=== PATIENT | male | born 1935 | race Caucasian/White ===

== ENCOUNTER 2018-12-14 09:11 | Inpatient (IN) | payer MEDICARE, MEDICAID ==
[~2018-12-14] VITALS: Ht 185.4 cm; Wt 109.3 kg
[2018-12-14] MEDS ORDERED: SODIUM CHLORIDE 0.9% 500 ML IV ONE (10:16)
[2018-12-14 10:59] LABS: BASOPHILS % 0.6 % (0.0-2.0); EOSINOPHILS % 1.6 % (0.0-5.0); HEMATOCRIT. 43.4 % (42.0-52.0); HEMOGLOBIN. 14.3 g/dL (14.0-18.0); LYMPHOCYTES % 10.6 % (20.0-50.0); MEAN CORPUSCULAR HEMOGLOBIN 29.7 pg (28.0-32.0); MEAN CORPUSCULAR VOLUME 90.5 fL (80.0-94.0); MEAN PLATELET VOLUME 8.6 fl (7.4-10.4); MONOCYTES % 8.1 % (2.0-8.0); NEUTROPHILS % 79.1 % (40.0-76.0); PLATELET 170 x1000/uL (130-400); RED CELL DISTRIBUTION WIDTH 14.1 % (11.6-14.6)
[2018-12-14 11:02] LABS: CHLORIDE 105 mEq/L (98-107)
[2018-12-14 11:06] LABS: INR 1.1; PARTIAL THROMBOPLASTIN TIME 26.6 sec (23.4-31.0); PROTHROMBIN TIME 10.8 sec (9.1-11.1)
[2018-12-14] MEDS ORDERED: DOCUSATE SODIUM 100MG CAPSULE PO PRN (12:30)
[2018-12-14] MEDS ORDERED: HYDROCODONE/ACETAMINOPHEN 5/325MG TABLET PO PRN (12:30)
[2018-12-14] MEDS ORDERED: MAGNESIUM/ALUMINUM HYDROXIDE/SIMETHICONE 30ML UDC PO PRN (12:30)
[2018-12-14] MEDS ORDERED: ONDANSETRON HCL 4MG/2ML INJ IV PRN (12:30)
[2018-12-14] MEDS ORDERED: LORAZEPAM 2MG/ML CPJ IV PRN (12:30)
[2018-12-14] MEDS ORDERED: CLONIDINE 0.1MG TABLET PO PRN (12:30)
[2018-12-14] MEDS ORDERED: LEVETIRACETAM 500MG PREMIX 100 ML IV NR (12:30)
[2018-12-14] MEDS ORDERED: GUAIFENESIN 200MG/10ML SUGAR FREE UDC PO PRN (12:30)
[2018-12-14] MEDS ORDERED: ACETAMINOPHEN 325MG TABLET PO PRN (12:30)
[2018-12-14 13:28] LABS: CLARITY URINE CLEAR (CLEAR); COLOR URINE YELLOW (YELLOW); KETONES URINE NEGATIVE (NEGATIVE); LEUKOCYTE ESTERASE URINE NEGATIVE (NEGATIVE); NITRITE URINE NEGATIVE (NEGATIVE); OCCULT BLOOD URINE NEGATIVE (NEGATIVE); PROTEIN URINE NEGATIVE (NEGATIVE); SPECIFIC GRAVITY URINE 1.007 (1.005-1.030); UROBILINOGEN URINE 0.2 E.U./dL (0.2-1.0)
[2018-12-14 14:02] LABS: CREATINE KINASE 84 IU/L (39-308)
[2018-12-14] MEDS ORDERED: NA PHOS,M-B/NA PHOS,DI-BA ENEMA 118ML PR PRN (21:00)
[2018-12-14 21:30] VITALS: BP 167/96
[2018-12-14] MEDS: SODIUM CHLORIDE 0.45% 1,000 ML IV SCH (23:36)
[2018-12-15 00:23] VITALS: BP 155/74
[2018-12-15] MEDS ORDERED: AMLO5TAB88 MT (01:52)
[2018-12-15] MEDS ORDERED: FINA1TAB18 MT (01:52)
[2018-12-15] MEDS ORDERED: ASCO500C15 MT (01:52)
[2018-12-15] MEDS ORDERED: FINA5TAB11 PO (01:52)
[2018-12-15] MEDS ORDERED: CARB15DR2 EACHEYE (01:52)
[2018-12-15] MEDS ORDERED: LUBI8CAP MT (01:52)
[2018-12-15] MEDS ORDERED: MULT-34 MT (01:52)
[2018-12-15] MEDS ORDERED: LORA10CA MT (01:52)
[2018-12-15] MEDS ORDERED: FEBU40TA MT (01:52)
[2018-12-15] MEDS ORDERED: ATROV INH (01:52)
[2018-12-15] MEDS ORDERED: OMEP40CA34 MT (01:52)
[2018-12-15] MEDS ORDERED: ACET-2708 MT (01:52)
[2018-12-15] MEDS ORDERED: CITA40TA11 MT (01:52)
[2018-12-15] MEDS ORDERED: DONE23TA3 MT (01:52)
[2018-12-15] MEDS ORDERED: vitamin d 3 (01:52)
[2018-12-15] MEDS ORDERED: TAMS0.4C31 PO (01:52)
[2018-12-15] MEDS ORDERED: LACT1CAP63 MT (01:52)
[2018-12-15] MEDS ORDERED: CLON-457 MT (01:52)
[2018-12-15] MEDS ORDERED: LOSA100T14 MT (01:52)
[2018-12-15] MEDS ORDERED: BUDE6.9H INH (01:52)
[2018-12-15] MEDS ORDERED: ACET-2708 PO (01:52)
[2018-12-15] MEDS ORDERED: ALBU18HF2 IH (01:52)
[2018-12-15] MEDS ORDERED: QUET25TA MT (01:52)
[2018-12-15 04:41] VITALS: BP 150/71
[2018-12-15 07:13] LABS: BASOPHILS % 0.7 % (0.0-2.0); EOSINOPHILS % 1.7 % (0.0-5.0); HEMATOCRIT. 40.5 % (42.0-52.0); HEMOGLOBIN. 13.6 g/dL (14.0-18.0); LYMPHOCYTES % 15.1 % (20.0-50.0); MEAN CORPUSCULAR VOLUME 89.7 fL (80.0-94.0); MEAN PLATELET VOLUME 8.9 fl (7.4-10.4); NEUTROPHILS % 73.5 % (40.0-76.0); PLATELET 181 x1000/uL (130-400); RED BLOOD CELL COUNT 4.52 mill/uL (4.7-6.1); RED CELL DISTRIBUTION WIDTH 13.9 % (11.6-14.6)
[2018-12-15 08:00] VITALS: BP 166/86
[2018-12-15] MEDS ORDERED: ASPIRIN 81MG EC TABLET PO SCH (09:00)
[2018-12-15] MEDS ORDERED: ENOXAPARIN 30MG/0.3ML SYR SUBCUT SCH (09:00)
[2018-12-15] MEDS: SODIUM CHLORIDE 0.45% 1,000 ML IV SCH (09:18)
[2018-12-15] MEDS ORDERED: CITALOPRAM HYDROBROMIDE 20MG TABLET PO SCH (10:45)
[2018-12-15 12:00] VITALS: BP 158/88
[2018-12-15 12:03] LABS: CHLORIDE 106 mEq/L (98-107)
[2018-12-15 12:13] LABS: HDL CHOLESTEROL 59 mg/dL (40-59); LDL CHOLESTEROL 110 mg/dL (5-100)
[2018-12-15] MEDS ORDERED: TAMSULOSIN HCL 0.4MG SR CAPSULE PO SCH (21:00)
== END 2018-12-15 16:50 | disposition home or self-care (01) | DRG 101 ==
LOC: ER 09:11 → EDBEDREQ 10:15 → SUPCPDRO 12:21 → ENRESERV 20:00 → 6WST 22:25
PROVIDERS: ADMIT Hospitalist; ATTEND Hospitalist
DX: G40.89 Other seizures (principal); F02.81 Dementia in other diseases classified elsewhere, unspecified severity, with behavioral disturbance; G20 Parkinson's disease; G30.9 Alzheimer's disease, unspecified; H91.90 Unspecified hearing loss, unspecified ear; I10 Essential (primary) hypertension; R32 Unspecified urinary incontinence
CPT/HCPCS: 36415; 70551; 71045; 80061; 82550; 83735; 83880; 84484; 93005; 93306; 93970; 96374; 97162; 99285; J1650; J1953; J2060; J7040